=== PATIENT | female | born 2000 | race Asian ===

== ENCOUNTER 2024-05-27 15:27 | Emergency (ER) | payer OTHER ==
[~2024-05-27] VITALS: Ht 167.6 cm; Wt 68.0 kg
[2024-05-27] MEDS ORDERED: CEFTRIAXONE SODIUM 1,000 MG VIAL IM STA (17:18)
== END 2024-05-27 17:31 | disposition home or self-care (01) ==
LOC: ER 15:28
DX: L03.312 Cellulitis of back [any part except buttock and flank] (principal)